=== PATIENT | female | born 1995 | race Caucasian/White ===

== ENCOUNTER 2017-05-07 22:10 | Emergency (ER) | payer BC ==
[~2017-05-07] VITALS: Ht 160 cm; Wt 54.0 kg
[2017-05-07 22:21] VITALS: TEMP 36.7; Ht 160 cm; Wt 54.0 kg
[2017-05-07] MEDS ORDERED: DiphenhydrAMINE HCL 50 MG/ML VIAL IV STA (22:41)
[2017-05-07] MEDS ORDERED: METOCLOPRAMIDE HCL INJ 5 MG/ML 2 ML VIAL IV STA (22:41)
[2017-05-07] MEDS ORDERED: SODIUM CHLORIDE 0.9% 1000ML 1,000 ML IV STA ×2 (22:41)
[2017-05-07] MEDS ORDERED: DICYCLOMINE HCL 10 MG/ML 2 ML AMP IM ONE (22:45)
[2017-05-07] MEDS ORDERED: BCPILLS PO (23:03)
[2017-05-07] MEDS ORDERED: ELUX1TAB2 PO (23:03)
[2017-05-07 23:13] LABS: HEMATOCRIT 35.8 % (37-47); MEAN CELL VOLUME 91.6 fL (80-100); MEAN CORPUSCULAR HEMOGLOBIN 29.9 pg (25-34); MEAN CORPUSCULAR HGB CONC 32.7 g/dl (32-36); PLATELET COUNT 310 K/uL (130-400); RED BLOOD COUNT 3.91 M/uL (4.2-5.4); WHITE BLOOD COUNT 18.34 K/uL (4.8-10.8)
[2017-05-07 23:31] LABS: BUN/CREATININE RATIO 8.5 (10-20); CALCIUM 8.5 mg/dl (8.5-10.1); CREATININE 0.94 mg/dl (0.60-1.20); MAGNESIUM 2.3 mg/dl (1.8-2.4); POTASSIUM 3.4 mmol/L (3.5-5.1)
[2017-05-07 23:34] LABS: C-REACTIVE PROTEIN 4.42 mg/dl (0-0.29)
[2017-05-07 23:36] LABS: PREG INTERNAL NEGATIVE QC NEG CLEAR BACKGROUND; PREG INTERNAL POSITIVE QC POS CONTROL LINE
[2017-05-07 23:43] LABS: BASO % 0.1 %; BASO ABS # 0.02 K/uL (0-0.2); COMPLETE YES; EOS % 0.2 %; IG% 0.4 %; LYMPH % 6.4 %; LYMPH ABS # 1.17 K/uL (1.2-3.4); MONO % 3.1 %; NEUT % 89.8 %
--- NOTE | 2017-05-08 00:28 | EMERGENCY ROOM VISIT NOTE ---
History First contact with patient: 22:29 Chief Complaint: ABDOMINAL PAIN Stated Complaint: ABD PAIN VOMITING History of Present Illness The patient is a 21 year old female who presents to the Emergency Room with complaints of fever, chills, flulike illness with nausea and vomiting and abdominal discomfort. Patient states this morning she woke up with flulike illness. She took some Tylenol with some improvement of symptoms. No documented temperature. Patient states later today she got nauseous and threw up a couple times. She ate dinner and has been having abdominal discomfort since then. She has a history of lymphocytic colitis. She is currently on Viberzi. She is suppose to take this twice a day but has not been for quite some time. She follows at Dr. Coto. Patient states tonight because the pain she didn't take it tonight. No change in symptoms. She did take [place] and shortly after that the belly pain did start. She is unsure this triggered her symptoms. She states this feels like her lymphocytic colitis. Patient denies chest pain, dyspnea, back pain, black or blood in the stool, cough, congestion, leg pain or swelling, urinary symptoms. Review of Systems See HPI for pertinent positives & negatives. A total of 10 systems reviewed and were otherwise negative. Past Medical/Surgical History Lymphocytic colitis Social History Smoking Status: Never Smoker Smokeless Tobacco Use: No Alcohol Use: none Drug Use: none Marital Status: in relationship Occupation Status: employed Current/Historical Medications Scheduled Control Pills ( Control Pills), 1 TAB PO DAILY Eluxadoline (Viberzi), 100 MG PO BID Allergies Coded Allergies: No Known Allergies (Unverified , 05/29/11) Physical Exam Vital Signs Date Time Temp Pulse Resp B/P (MAP) Pulse Ox O2 Delivery O2 Flow Rate FiO2 05/07/17 22:21 36.7 68 20 123/83 97 Room Air Physical Exam VITALS: Vitals are noted on the nurse's note and reviewed by myself. Vital signs stable. GENERAL: Pleasant female, in no acute distress, nondiaphoretic, well-developed well-nourished. SKIN: The skin was without rashes, erythema, edema, or bruising. There is no tenting of the skin. Capillary reflex less than 2 seconds. HEAD: Normocephalic atraumatic. EARS: External auditory canals clear, tympanic membranes pearly suarez without erythema or effusion bilaterally. EYES: Pupils equal round and reactive to light and accommodation. Conjunctivae without injection, sclerae without icterus. Extraocular movements intact. NOSE: Patent, turbinates without inflammation or discharge. No sinus tenderness. MOUTH: Mucous membranes mildly dry. Pharynx without erythema or exudate. Uvula midline. Airway patent. Tongue does not deviate. NECK: Supple without nuchal rigidity. No lymphadenopathy. No thyromegaly. Cervical spine is nontender. No JVD. No meningeal signs HEART: Regular rate and rhythm without murmurs gallops or rubs. LUNGS: Clear to auscultation bilaterally without wheezes, rales or rhonchi. No dullness to percussion. No retractions or accessory muscle use. ABDOMEN: Positive bowel sounds x 4. Normal tympanic percussion. Soft, mild diffuse tenderness with no localized pain, no CVA tenderness, without masses or organomegaly. Rob sign negative. No guarding or rebound tenderness. MUSCULOSKELETAL: No muscle atrophy, erythema, or edema noted. NEURO: Patient was alert and oriented to person place and time. Normal sensation to light and sharp touch. No focal neurological deficits. Medical Decision & Procedures Laboratory Results 05/07/17 23:00 Red Blood Count 3.91, Mean Corpuscular Volume 91.6, Mean Corpuscular Hemoglobin 29.9, Mean Corpuscular Hemoglobin Concent 32.7, Mean Platelet Volume 8.0, Neutrophils (%) (Auto) 89.8, Lymphocytes (%) (Auto) 6.4, Monocytes (%) (Auto) 3.1, Eosinophils (%) (Auto) 0.2, Basophils (%) (Auto) 0.1, Neutrophils # (Auto) 16.49, Lymphocytes # (Auto) 1.17, Monocytes # (Auto) 0.56, Eosinophils # (Auto) 0.03, Basophils # (Auto) 0.02 05/07/17 23:00 Test 05/07/17 23:00 05/07/17 23:09 White Blood Count 18.34 K/uL (4.8-10.8) Red Blood Count 3.91 M/uL (4.2-5.4) Hemoglobin 11.7 g/dL (12.0-16.0) Hematocrit 35.8 % (37-47) Mean Corpuscular Volume 91.6 fL (80-100) Mean Corpuscular Hemoglobin 29.9 pg (25-34) Mean Corpuscular Hemoglobin Concent 32.7 g/dl (32-36) Platelet Count 310 K/uL (130-400) Mean Platelet Volume 8.0 fL (7.4-10.4) Neutrophils (%) (Auto) 89.8 % Lymphocytes (%) (Auto) 6.4 % Monocytes (%) (Auto) 3.1 % Eosinophils (%) (Auto) 0.2 % Basophils (%) (Auto) 0.1 % Neutrophils # (Auto) 16.49 K/uL (1.4-6.5) Lymphocytes # (Auto) 1.17 K/uL (1.2-3.4) Monocytes # (Auto) 0.56 K/uL (0.11-0.59) Eosinophils # (Auto) 0.03 K/uL (0-0.5) Basophils # (Auto) 0.02 K/uL (0-0.2) RDW Standard Deviation 45.9 fL (36.4-46.3) RDW Coefficient of Variation 14.1 % (11.5-14.5) Immature Granulocyte % (Auto) 0.4 % Immature Granulocyte # (Auto) 0.07 K/uL (0.00-0.02) Erythrocyte Sedimentation Rate 16 mm/hr (0-21) Anion Gap 11.0 mmol/L (3-11) Est Creatinine Clear Calc Drug Dose 77.0 ml/min Estimated GFR () 99.1 Estimated GFR (Non- 85.5 BUN/Creatinine Ratio 8.5 (10-20) Calcium Level 8.5 mg/dl (8.5-10.1) Magnesium Level 2.3 mg/dl (1.8-2.4) Total Bilirubin 0.4 mg/dl (0.2-1) Direct Bilirubin 0.1 mg/dl (0-0.2) Aspartate Amino Transf (AST/SGOT) 13 U/L (15-37) Alanine Aminotransferase (ALT/SGPT) 16 U/L (12-78) Alkaline Phosphatase 56 U/L (45-117) C-Reactive Protein 4.42 mg/dl (0-0.29) Total Protein 7.9 gm/dl (6.4-8.2) Albumin 3.9 gm/dl (3.4-5.0) Lipase 107 U/L (73-393) Human Chorionic Gonadotropin, Qual NEG (NEG) Bedside Lactic Acid Venous 0.65 mmol/L (0.90-1.70) Medications Administered Medications (Trade) Dose Ordered Sig/Brice Route Start Time Stop Time Status Last Admin Dose Admin Sodium Chloride 1,000 ml @ 999 mls/hr Q1H1M STAT IV 05/07/17 22:41 05/07/17 23:41 DC 05/07/17 23:19 999 MLS/HR Sodium Chloride 1,000 ml @ 125 mls/hr Q8H STAT IV 05/07/17 22:41 05/08/17 06:40 05/07/17 23:19 125 MLS/HR Metoclopramide HCl (Reglan Inj) 10 mg NOW STAT IV 05/07/17 22:41 05/07/17 22:44 DC 05/07/17 23:19 10 MG Diphenhydramine HCl (Benadryl Inj) 25 mg NOW STAT IV 05/07/17 22:41 05/07/17 22:44 DC 05/07/17 23:19 25 MG Dicyclomine HCl (Bentyl Inj) 20 mg NOW ONCE IM 05/07/17 22:45 05/07/17 22:46 DC 05/07/17 23:19 20 MG ED Course Prior records/ancillary studies reviewed. Triage Nursing notes reviewed. Additional history obtained from the family. The patient's history was concerning for nausea, vomiting, flulike illness, and abdominal pain. Differential diagnosis: Etiologies such as exacerbation of her lymphocytic colitis, gastroenteritis, food borne illness, infections, appendicitis, diverticulitis, inflammatory bowel disease, obstruction, GI bleed, biliary pathology, as well as others were entertained. Physical examination findings: As above. Abdominal examination revealed no localized pain. Vital signs reviewed and revealed stable. ER treatment provided: IV hydration 1 L NSS. Reglan, Benadryl, Bentyl On reassessment the patient felt better. Patient was tolerating p.o. intake. Diagnostics interpretation by me: The labs revealed leukocytosis, mild anemia, negative ECG Negative lactic acid This appears to be consistent with vomiting with abdominal cramping most likely an exacerbation of her lymphocytic colitis. Her leukocytosis could be related to her colitis or to her vomiting. Patient felt much better to be medicated as above. She was tolerating fluids. She did not have acute abdomen on exam. She was requesting to leave. She is advised to follow-up tomorrow with her GI doctor here in the ER sooner for abdominal pain, fevers, vomiting, worsening signs or symptoms or as needed. By the evaluation outlined above emergent etiologies such as appendicitis, diverticulitis, obstruction, cardiac sources, mesenteric ischemia, aortic pathology, inflammatory bowel disease, renal colic, PUD, biliary pathology, UTI, as well as others were deemed relatively unlikely. Case management was consulted to arrange follow-up with GI. The pt informed about the findings as listed above. All questions were answered and pleased with the treatment. Return instructions were outlined and the patient was discharged in stable condition. Outpatient prescription management: Zofran Referral: The patient was referred to their primary care physician and GI for follow-up in 2 to 3 days for a recheck of the current condition. Case reviewed with my attending Medical Decision As above Impression Primary Impression: Nausea and vomiting Additional Impressions: Generalized abdominal cramping Leukocytosis Departure Information Dispostion Home / Self-Care Condition GOOD Referrals Abelino Ortega D.O. (PCP) Patient Instructions [facility] Additional Instructions DO NOT drive, drink alcohol, operate machinery, or perform dangerous activities today. You were given medications in the ER that can affect your ability to safely function or operate a vehicle. Zofran(odansetron) tablets 4mg: Take one and allow it to dissolve in your mouth every four to six hours as needed for nausea or vomiting. Acetaminophen(Tylenol) may be used for fever or pain. Use 1000mg every six hours as needed. Avoid using more than 3000mg in a 24 hour period. Rest and drink plenty of fluids as tolerated. Slow sips of water or sports drinks are recommended instead of large amounts all at once. Continue current medications. Once your stomach is settled start with a clear liquid diet (jello, soup broth, etc.) and then advance as tolerated. You should avoid full, heavy meals for about 24 hrs from the time your symptoms resolved. Return to the ER for persistent vomiting, fevers, abdominal pain, chest pains, difficulty breathing, black or bloody stools, worsening of your condition, or as needed. Follow up with your primary physician and/or rn oncology research in 2-3 days for a recheck of your current condition. Problem Qualifiers Primary Impression: Nausea and vomiting Vomiting type: unspecified Vomiting Intractability: non-intractable Qualified Codes: R11.2 - Nausea with vomiting, unspecified
[2017-05-08 00:49] VITALS: BP 119/79; PULSE 75; O2SAT 98
[2017-05-08] MEDS ORDERED: ONDANSETRON HOME PACK 4MG OD TAB PO ONE (01:00)
== END 2017-05-08 01:08 | disposition home or self-care (01) ==
LOC: C.EDB 22:12 → C.EDA 05-08 01:08
DX: R11.2 Nausea with vomiting, unspecified (principal); R10.84 Generalized abdominal pain; D72.829 Elevated white blood cell count, unspecified; K52.832 Lymphocytic colitis; Z79.899 Other long term (current) drug therapy

== ENCOUNTER 2020-02-19 06:36 | Inpatient (IN) ==
[2020-02-19] MEDS ORDERED: OXYTOCIN 30 UNITS/500 ML BAG IV PRN ×3 (08:54→20:56)
[2020-02-19 09:30] LABS: Hematocrit (blood only) 38.5 % (37-47); Hemoglobin 13.1 g/dL (12.0-16.0); Mean Corpuscular Hemoglobin 33.2 pg (25-34); Mean Corpuscular Volume 97.5 fL (80-100); Mean Platelet Volume 9.1 fL (7.4-10.4); Platelet Count 270 K/uL (130-400); RDW Standard Deviation 49.6 fL (36.4-46.3); Red Blood Count 3.95 M/uL (4.2-5.4); White Blood Count 11.92 K/uL (4.8-10.8)
--- NOTE | 2020-02-19 10:07 | Obstetrical Progress Note ---
Date of Service February 19, 2020 Subjective Admit Note 24 F P0000 at 39.3 weeks admitted to L&D with SROM clear fluid around 0530 this AM with contractions. GBS is negative. FHT CAT 1. Cervix 2/80/-3/vertex. Will allow to ambulate in early labor. Planning for epidural. EFW 8 lbs. Results & Data ([facility]) Vital Signs (Past 12 Hours) Vital Signs Temp Pulse Resp BP 02/19/20 09:53 36.8 C 02/19/20 07:30 36.7 C 02/19/20 06:56 36.7 C 96 H 18 119/76
[2020-02-19] MEDS: LACTATED RINGER'S 1,000 ML IV PRN ×3 (12:18→18:47)
[2020-02-19] MEDS ORDERED: BUPIVACAINE 0.25% 30 ML VIAL ONE (12:23)
[2020-02-19] MEDS ORDERED: ePHEDrine sulfate 50 MG/ML AMP ONE (12:23)
[2020-02-19] MEDS ORDERED: fentaNYL 2MCG/ML ROPIV 1.25MG/ML 100 ML BAG EPI ONE (12:24)
[2020-02-19] MEDS ORDERED: fentaNYL citrate 100 MCG/2 ML VIAL ONE (12:24)
--- NOTE | 2020-02-19 12:37 | Anesthesiology Consultation ---
Date of Service February 19, 2020 Assessment & Plan (1) Encounter for pre-operative examination: Chart Review Chart Review: Acceptable Risk for Labor Epidural History Height/Weight Height: 5 ft 3 in Weight: 69.946 kg Allergies Allergy/AdvReac Type Severity Reaction Status Date / Time No Known Allergies Allergy Unverified 05/29/11 12:14 Medications Home Medications Medication Instructions Recorded Confirmed Last Taken vit-iron fum-folic ac 1 tab PO DAILY 02/19/20 02/19/20 02/18/20 20:00 [ Vitamin] Active Medications Generic Name Dose Route Start Last Admin Trade Name Freq PRN Reason Stop Dose Admin Lactated Ringer's 1,000 mls @ 125 mls/hr 02/19/20 08:54 02/19/20 12:18 Lr IV 02/21/20 08:53 999 mls/hr .Q8H PRN Administration L&D Protocol Protocol Past Medical History Medical History Lymphocytic colitis Past Surgical History Surgical History History of dental surgery Social History Smoking Status: Never smoker Hx Alcohol Use: No Hx Substance Use: No Physical Exam Vital Signs Last Vital Signs Temp 36.8 C 02/19/20 09:53 Pulse 87 02/19/20 12:33 Resp 22 02/19/20 09:53 BP 116/73 02/19/20 12:14 Pulse Ox 100 02/19/20 12:33 Testing Laboratory Results 02/19/20 09:03
[2020-02-19] MEDS ORDERED: ePHEDrine sulfate 50 MG/ML AMP IV PRN (13:06)
[2020-02-19] MEDS ORDERED: ONDANSETRON INJ 2 MG/ML 2 ML VIAL IV PRN (13:06)
[2020-02-19] MEDS ORDERED: NALOXONE HCL 0.4 MG/1 ML VIAL/CARP IV PRN (13:06)
[2020-02-19] MEDS ORDERED: fentaNYL 2MCG/ML ROPIV 1.25MG/ML 100 ML BAG EPI PRN (13:06)
[2020-02-19] MEDS ORDERED: NALOXONE HCL 1 MG in SODIUM CHLORIDE 0.9% 1000ML 1,000 ML IV PRN (13:06)
--- NOTE | 2020-02-19 18:53 | Obstetrical Progress Note ---
Date of Service February 19, 2020 Physical Exam Genitourinary: Manual OB Exam: + cervical dilation 10 cm OB Exam Monitor Tracing: + external FHT monitor used, + external uterine monitor used, + category I and + normal FHT variability contractions not regular no urge to push will start Oxytocin to augment labor Results & Data ([facility]) Vital Signs (Past 12 Hours) Vital Signs Temp Pulse Resp BP Pulse Ox 02/19/20 18:48 95 H 100 02/19/20 18:44 100 H 118/77 02/19/20 18:43 101 H 100 02/19/20 18:38 98 H 100 02/19/20 18:33 102 H 100 02/19/20 18:28 37.0 C 97 H 20 114/76 100 02/19/20 18:23 92 H 96 02/19/20 18:18 86 100 02/19/20 18:13 109 H 112/78 97 02/19/20 18:08 96 H 100 02/19/20 18:03 90 100 02/19/20 18:00 107 H 108/78 02/19/20 17:59 106 H 88 L 02/19/20 17:58 116 H 99 02/19/20 17:53 103 H 100 02/19/20 17:48 100 H 96 02/19/20 17:44 37.3 C 106 H 18 116/77 02/19/20 17:43 105 H 88 L 02/19/20 17:38 94 H 100 02/19/20 17:33 86 99 02/19/20 17:29 81 119/75 02/19/20 17:28 82 100 02/19/20 17:25 91 H 80 L 02/19/20 17:23 79 100 02/19/20 17:18 87 99 02/19/20 17:14 87 116/76 02/19/20 17:13 86 100 02/19/20 17:08 89 100 02/19/20 17:03 87 100 02/19/20 16:59 85 120/78 02/19/20 16:58 91 H 100 02/19/20 16:53 84 99 02/19/20 16:48 82 98 02/19/20 16:43 81 116/73 98 02/19/20 16:38 92 H 98 02/19/20 16:33 86 99 02/19/20 16:28 78 114/71 99 02/19/20 16:23 82 99 02/19/20 16:18 78 100 02/19/20 16:14 89 115/69 83 L 02/19/20 16:13 84 100 02/19/20 16:08 85 97 02/19/20 16:03 82 99 02/19/20 15:59 76 110/69 02/19/20 15:58 74 98 02/19/20 15:53 78 98 02/19/20 15:48 68 98 02/19/20 15:44 70 106/66 02/19/20 15:43 71 97 02/19/20 15:38 79 97 02/19/20 15:33 69 98 02/19/20 15:30 71 109/70 02/19/20 15:28 74 98 02/19/20 15:23 77 99 02/19/20 15:18 78 98 02/19/20 15:15 85 113/71 02/19/20 15:13 81 98 02/19/20 15:08 88 98 02/19/20 15:03 75 98 02/19/20 14:58 85 103/71 98 02/19/20 14:53 79 98 02/19/20 14:48 67 98 02/19/20 14:44 71 110/74 02/19/20 14:43 68 99 02/19/20 14:38 81 98 02/19/20 14:33 85 98 02/19/20 14:28 96 H 105/74 98 02/19/20 14:23 79 100 02/19/20 14:18 79 99 02/19/20 14:13 74 103/64 98 02/19/20 14:08 73 98 02/19/20 14:03 74 94 02/19/20 13:58 75 111/66 100 02/19/20 13:53 70 100 02/19/20 13:48 79 100 02/19/20 13:44 73 108/67 82 L 02/19/20 13:43 71 100 02/19/20 13:38 76 99 02/19/20 13:33 78 100 02/19/20 13:28 84 116/71 98 02/19/20 13:23 75 98 02/19/20 13:18 81 100 02/19/20 13:17 75 107/60 02/19/20 13:15 36.8 C 81 18 110/62 02/19/20 13:13 92 H 111/64 100 02/19/20 13:11 80 106/61 02/19/20 13:09 87 105/61 02/19/20 13:08 86 100 02/19/20 13:07 81 103/59 L 02/19/20 13:05 74 108/61 02/19/20 13:03 71 114/63 100 02/19/20 13:01 85 115/58 L 02/19/20 12:59 75 106/67 02/19/20 12:58 84 97 02/19/20 12:53 86 100 02/19/20 12:48 96 H 100 02/19/20 12:43 88 99 02/19/20 12:38 91 H 100 02/19/20 12:33 87 100 02/19/20 12:28 74 98 02/19/20 12:23 85 100 02/19/20 12:18 80 99 02/19/20 12:14 83 116/73 02/19/20 09:53 36.8 C 22 02/19/20 07:30 36.7 C 20 02/19/20 06:56 36.7 C 96 H 18 119/76
--- NOTE | 2020-02-19 20:43 | Delivery Summary ---
Vaginal Delivery Summary Date of Service February 19, 2020 Delivery Note live female CAROLINE over intact perineum with delayed cord clamping. Apgars 8/9 weight pending. Cord blood collected for stem cells. Unable to obtain cord blood for lab. Placenta delivered spontaneously and intact. Small first degree tear repaired with 3/0 Vicryl suture. EBL 200 ml. Final sponge needle and instrument count are correct. Mom and baby stable.
[2020-02-19] MEDS ORDERED: SUPERCREAM 0.870% 15 GM JAR EXT PRN (20:56)
[2020-02-19] MEDS ORDERED: IBUPROFEN 600 MG TAB PO PRN (20:56)
[2020-02-19] MEDS ORDERED: BENZOCAINE 20% AER SPR 82.5 GM CAN EXT PRN (20:56)
[2020-02-19] MEDS ORDERED: DIPHTHERIA/TETANUS/PERTUSSIS 0.5 ML SYR/VIAL IM ONE (20:56)
[2020-02-19] MEDS ORDERED: HYDROCORTISONE ACETATE 25 MG SUPP PR PRN (20:56)
--- NOTE | 2020-02-19 21:24 | Anesthesia Procedure Note ---
Date of Service February 19, 2020 Anesthesia Post Epidural Note Vital Signs Vital Signs: Temp Pulse Resp BP Pulse Ox 37.0 C 86 18 112/59 L 87 L 02/19/20 18:28 02/19/20 21:15 02/19/20 21:15 02/19/20 21:15 02/19/20 20:36 Notes Mental Status: alert / awake / arousable Nausea / Vomiting: adequately controlled Pain: adequately controlled Airway Patency, RR, SpO2: stable & adequate BP & HR: stable & adequate Hydration State: stable & adequate Neuraxial Anesthesia: was administered and sensory block is resolving Anesthetic Complications: no major complications apparent and Pt Satisfied with anesthetic care Epidural: Removed without complications and With tip intact
[2020-02-19] MEDS: ACETAMINOPHEN 325 MG TAB PO PRN (23:33)
[2020-02-20] MEDS ORDERED: OXYTOCIN 30 UNITS in LACTATED RINGER'S 1,000 ML IV SCH (00:30)
[2020-02-20] MEDS ORDERED: METHYLERGONOVINE MALEATE 0.2 MG/ML AMP IM PRN (02:06)
[2020-02-20] MEDS: METHYLERGONOVINE MALEATE 0.2 MG/ML AMP ONE ×2 (02:09→02:26)
[2020-02-20] MEDS ORDERED: OXYTOCIN 20 UNITS in LACTATED RINGER'S 1,000 ML IV SCH (02:15)
[2020-02-20 06:40] LABS: Hematocrit (blood only) 27.9 % (37-47); Hemoglobin 9.4 g/dL (12.0-16.0); Mean Corpuscular Hemoglobin 32.9 pg (25-34); Mean Corpuscular Hgb Conc 33.7 g/dL (32-36); Mean Corpuscular Volume 97.6 fL (80-100); Mean Platelet Volume 8.7 fL (7.4-10.4); Platelet Count 198 K/uL (130-400); RDW Coefficient of Variation 13.9 % (11.5-14.5); RDW Standard Deviation 49.3 fL (36.4-46.3); Red Blood Count 2.86 M/uL (4.2-5.4); White Blood Count 19.93 K/uL (4.8-10.8)
[2020-02-20] MEDS: PRENATAL VITAMIN 1 TAB PO SCH (08:00)
[2020-02-20] MEDS: DOCUSATE SODIUM 100 MG CAP PO SCH ×2 (08:00→20:08)
[2020-02-20] MEDS ORDERED: NON-FORMULARY MEDICATION (Prenatal Vit-Iron Fum-Folic Ac [Prenatal Vitamin] 1 TAB) PO SCH (09:00)
[2020-02-20] MEDS ORDERED: DiphenhydrAMINE 2%/ZINC 0.1% CREAM 28GM TUBE EXT PRN (10:48)
--- NOTE | 2020-02-20 10:54 | Obstetrical Progress Note ---
Date of Service February 20, 2020 Assessment & Plan (1) Normal course: PPD #1 Pt doing well PPH stable H?H terry draining adequately uterus firm Erythema in the vulva region- looks like contact dermatitis Ice pack removed will apply Benadryl cream to area Subjective Ambulation: ambulating normally Voiding: no voiding problems Passing Gas:: Yes Diet Tolerance:: regular diet Lochia:: Small Feeding Type:: breast feeding Review of Systems All systems reviewed & are unremarkable except as noted in HPI & below Physical Exam Constitutional WD/WN, vitals as above well developed and well nourished Eyes PERRL, conjunctivae normal, anicteric sclerae Neck trachea midline, no thyromegaly Respiratory normal respiratory effort, lungs clear to auscultation Auscultation: no crackles, no rales and no wheezes Cardiovascular RRR, no murmur, no edema Gastrointestinal (Abdomen) normal bowel sounds, soft, nontender, no hepatosplenomegaly Uterus is below umbilicus Musculoskeletal no cyanosis or clubbing, extremities motor strength 5/5 Skin no rashes, warm and dry Neurologic patellar DTR's 2+ bilat, sensation intact Psychiatric A+Ox3, euthymic affect Genitourinary normal external appearance Results & Data Vital Signs (Past 12 Hours) Vital Signs Temp Pulse Pulse Resp BP Pulse Ox 02/20/20 07:20 36.8 C 67 16 118/81 100 02/20/20 03:30 37.0 C 71 18 123/85 99 02/20/20 00:15 84 109/73 02/19/20 23:05 36.8 C 84 18 101/69 98
[2020-02-20] MEDS: ACETAMINOPHEN 325 MG TAB PO PRN ×2 (11:09→20:21)
[2020-02-20] MEDS ORDERED: Nursing to Pharmacy Communication ONE (14:22)
[2020-02-20] MEDS ORDERED: SIMETHICONE 80 MG CHEW PO PRN ×2 (14:29→14:45)
[2020-02-20] MEDS ORDERED: bisacodyL 5 MG TABEC PO SCH (20:00)
[2020-02-21 06:43] LABS: Hematocrit (blood only) 25.1 % (37-47); Hemoglobin 8.3 g/dL (12.0-16.0)
[2020-02-21] MEDS ORDERED: bisacodyL 10 MG SUPP PR PRN (07:00)
--- NOTE | 2020-02-21 07:24 | Obstetrical Progress Note ---
Date of Service February 21, 2020 Assessment & Plan Admission and Anticipated Discharge Date Admission Date: February 19, 2020 Physical Exam Physical Exam: abdomen soft and non tender no calf tenderness ambulating well vaginal bleeding scant hgb 8.3 Results & Data ([facility]) Vital Signs (Past 12 Hours) Vital Signs Temp Pulse Resp BP Pulse Ox 02/20/20 23:25 36.7 C 85 16 101/61 02/20/20 20:15 37.1 C 98 H 18 119/79 100
[2020-02-21] MEDS: DOCUSATE SODIUM 100 MG CAP PO SCH (08:42)
[2020-02-21] MEDS: PRENATAL VITAMIN 1 TAB PO SCH (08:42)
== END 2020-02-21 12:52 | disposition home or self-care (01) | DRG 807 ==
LOC: OPB 06:36 → 4S1 06:39 → 4S2 23:06

== ENCOUNTER 2021-12-23 06:00 | Inpatient (IN) ==
[2021-12-23] MEDS ORDERED: OXYTOCIN 30 UNITS/500 ML BAG IV PRN ×2 (06:16→06:43)
[2021-12-23] MEDS ORDERED: LACTATED RINGER'S 1,000 ML IV PRN (06:16)
[2021-12-23] MEDS ORDERED: LIDOCAINE 1% LOCAL 20 ML VIAL ONE (06:35)
[2021-12-23] MEDS ORDERED: ACETAMINOPHEN 325 MG TAB ONE (06:36)
[2021-12-23] MEDS ORDERED: DIPHTHERIA/TETANUS/PERTUSSIS 0.5 ML SYR/VIAL IM ONE (06:43)
[2021-12-23] MEDS ORDERED: BENZOCAINE 20% AER SPR 82.5 GM CAN EXT PRN (06:43)
[2021-12-23] MEDS ORDERED: SUPERCREAM 0.870% 15 GM JAR EXT PRN (06:43)
[2021-12-23] MEDS ORDERED: IBUPROFEN 600 MG TAB PO PRN (06:43)
[2021-12-23] MEDS ORDERED: HYDROCORTISONE ACETATE 25 MG SUPP PR PRN (06:43)
--- NOTE | 2021-12-23 06:49 | History & Physical Report ---
Date of Service December 23, 2021 Assessment & Plan (1) Thyroiditis: (2) Term delivered: Plan: Delivery Admission and Anticipated Discharge Date Admission Date: December 23, 2021 History of Present Illness Chief Complaint: onset of labor Primary Care Provider: JELANI Jolley 26 F P1001 at 39.3 weeks admitted fully dilated and ready for delivery. GBS was negative. Allergies Allergy/AdvReac Type Severity Reaction Status Date / Time No Known Drug Allergies Allergy Verified 02/04/21 12:15 Home Medications Medication Instructions Recorded Confirmed Type levothyroxine 112 mcg tablet 112 mcg PO DAILY #90 tab 11/09/21 Rx Patient History Medical History Hypothyroidism Lymphocytic colitis Surgical History History of dental surgery Family History Family/Other Crohn's disease Denies family history of Ovarian cancer Prostate cancer Myocardial infarction Breast cancer Colorectal cancer Social History Smoking Status: Never smoker Hx Alcohol Use: No Hx Substance Use: No Preferred Language: Amharic Visual Impairment: No Limitations Hearing Ability: Normal Digital Account Executive Required: No Beliefs That Will Affect Care: None marital status: Current Living Situation: Spouse current occupational status: employed Other Information That Helps Us Care for You: No Feels Safe at Home: Yes Safety Concerns: Feels Safe At This Time caffeine: Yes during the past year weight has: remained stable Dental Care, Regularly: Yes Physical Activity Frequency: Daily Seatbelt Use: always Sunscreen Use: Yes Assistive Devices: None Review of Systems All systems reviewed & are unremarkable except as noted in HPI & below Physical Exam Constitutional: WD/WN, vitals as above Eyes: PERRL, conjunctivae normal, anicteric sclerae Respiratory: normal respiratory effort, lungs clear to auscultation Skin: no rashes, warm and dry Neurologic: patellar DTR's 2+ bilat, sensation intact Psychiatric: A+Ox3, euthymic affect Results & Data ([facility]) Vital Signs (Past 12 Hours) Vital Signs Pulse BP 12/23/21 06:29 86 125/82 Monitoring External Monitor Cat 1
--- NOTE | 2021-12-23 06:54 | Delivery Summary ---
Vaginal Delivery Summary Date of Service December 23, 2021 Vaginal Delivery Summary Delivery Note live male delivered by Dr. Tate after patient presents to L&D fully dilated and ruptured membranes with clear fluid. Live male delivered from vertex without any complications with Apgars 8/9 weight pending. Cord blood and placenta delivered intact. Second degree tear repaired by Dr. Tate. EBL 200 ml. Final sponge, needle and instrument count are correct. Mom and baby stable.
[2021-12-23 07:03] LABS: Hematocrit (blood only) 37.4 % (37-47); Hemoglobin 12.5 g/dL (12.0-16.0); Mean Corpuscular Hemoglobin 32.7 pg (25-34); Mean Corpuscular Hgb Conc 33.4 g/dL (32-36); Mean Corpuscular Volume 97.9 fL (80-100); Mean Platelet Volume 8.7 fL (7.4-10.4); Platelet Count 241 K/uL (130-400); RDW Coefficient of Variation 14.4 % (11.5-14.5); RDW Standard Deviation 51.3 fL (36.4-46.3); Red Blood Count 3.82 M/uL (4.2-5.4); White Blood Count 13.83 K/uL (4.8-10.8)
[2021-12-23] MEDS ORDERED: PRENATAL VITAMIN 1 TAB PO SCH (08:00)
[2021-12-23] MEDS: LEVOTHYROXINE SODIUM 88 MCG TABLET PO SCH (08:03)
[2021-12-23] MEDS: ACETAMINOPHEN 325 MG TAB PO PRN ×2 (11:55→18:40)
[2021-12-23] MEDS: DOCUSATE SODIUM 100 MG CAP PO SCH (20:07)
--- NOTE | 2021-12-23 20:07 | Obstetrical Progress Note ---
Date of Service December 23, 2021 Assessment & Plan Admission and Anticipated Discharge Date Admission Date: December 23, 2021 Results & Data ([facility]) Vital Signs (Past 12 Hours) Vital Signs Temp Pulse Pulse Resp BP BP Pulse Ox 12/23/21 16:30 37 C 73 16 114/74 98 12/23/21 11:10 36.8 C 78 16 108/69 98 12/23/21 10:28 75 20 120/75 12/23/21 10:17 72 105/62 12/23/21 10:07 74 104/61 12/23/21 10:00 18 12/23/21 09:58 76 104/57 L 12/23/21 09:47 76 20 102/59 L 12/23/21 09:38 76 107/67 12/23/21 09:28 87 114/63 12/23/21 09:18 71 123/68 12/23/21 09:07 94 H 113/74 12/23/21 08:57 83 113/64 12/23/21 08:46 90 107/61 12/23/21 08:39 81 20 108/60
[2021-12-24] MEDS: ACETAMINOPHEN 325 MG TAB PO PRN ×2 (00:16→08:55)
[2021-12-24] MEDS ORDERED: HYDROCORTISONE 1% OINT 30 GM TUBE EXT STA (04:39)
[2021-12-24 06:21] LABS: Hematocrit (blood only) 32.9 % (37-47); Hemoglobin 10.7 g/dL (12.0-16.0); Mean Corpuscular Hemoglobin 32.1 pg (25-34); Mean Corpuscular Hgb Conc 32.5 g/dL (32-36); Mean Corpuscular Volume 98.8 fL (80-100); Mean Platelet Volume 8.7 fL (7.4-10.4); Platelet Count 245 K/uL (130-400); RDW Coefficient of Variation 14.6 % (11.5-14.5); RDW Standard Deviation 52.2 fL (36.4-46.3); Red Blood Count 3.33 M/uL (4.2-5.4); White Blood Count 11.64 K/uL (4.8-10.8)
[2021-12-24] MEDS: LEVOTHYROXINE SODIUM 88 MCG TABLET PO SCH (06:44)
[2021-12-24] MEDS: DOCUSATE SODIUM 100 MG CAP PO SCH (09:09)
--- NOTE | 2021-12-24 10:26 | Obstetrical Progress Note ---
Date of Service December 24, 2021 Subjective Ambulation: ambulating normally Voiding: no voiding problems Passing Gas:: Yes Diet Tolerance:: regular diet Lochia:: Small Feeding Type:: breast feeding Current Pain Level(1-10): 0 doing well plans for d/c Physical Exam Constitutional WD/WN, vitals as above comfortable abdomen soft and non-tender fundus firm no edema neg Savi's for d/c Results & Data ([facility]) Vital Signs (Past 12 Hours) Vital Signs Temp Pulse Resp BP 12/24/21 07:27 36.9 C 82 16 123/86 12/24/21 03:50 36.6 C 86 18 116/81 12/24/21 00:20 36.9 C 76 18 114/73 Laboratory Results 12/23/21 12/23/21 12/24/21 06:20 06:44 05:55 WBC 13.83 H 11.64 H RBC 3.82 L 3.33 L Hgb 12.5 10.7 L Hct 37.4 32.9 L MCV 97.9 98.8 MCH 32.7 32.1 MCHC 33.4 32.5 RDW Std Deviation 51.3 H 52.2 H RDW Coeff of Darby 14.4 14.6 H Plt Count 241 245 MPV 8.7 8.7 SARS-CoV-2, RNA, NAAT NEGATIVE
[2021-12-24] MEDS ORDERED: bisacodyL 5 MG TABEC PO SCH (20:00)
[2021-12-25] MEDS ORDERED: bisacodyL 10 MG SUPP PR PRN
--- NOTE | 2021-12-26 09:16 | Delivery Summary ---
DATE OF SERVICE: 12/23/2021 PROCEDURE: Normal spontaneous vaginal delivery. SURGEON: Rodrick Tate MD. PREOPERATIVE DIAGNOSES: Term , in active labor. ESTIMATED BLOOD LOSS: 200 mL DRAINS: None. FLUIDS: None per rapid delivery. COMPLICATIONS: None. INDICATIONS: The patient is a 26-year-old who was with the Curalate, came in active labor wit hout a [facility] physician available for delivery. I was asked to step in for delivery as delivery h appening precipitously. DESCRIPTION OF PROCEDURE: The patient was 10 cm dilated, 100% effaced, positive 2 station in an acti ve labor with a strong urge to push and pushed over approximately 2 contractions to achieve delivery of the delivered in JOSE ROBERTO position, restituted by transverse. No nuchal cord was noted. Body and shoulders quickly followed. was noted to be vigorous soon after delivery and a 1 minute delayed cord clamping was initiated, which the cord was double clamped and cut. Cord segment, cord b lood was obtained. Attention was then turned to delivery of placenta, which was delivered intact, 3- vessel cord, gentle cord traction. On inspection of the perineum, vagina, cervix, there was noted to be a second-degree perineal laceration, which was repaired with a 3-0 Vicryl in a traditional crown stitch. Needle, sponge, and instrument counts were correct at the completion of the case. Job ID: [id number]
== END 2021-12-24 14:05 | disposition home or self-care (01) | DRG 807 ==
LOC: OPB 06:00 → 4S1 06:02 → 4S2 10:40
DX: Z3A.39 39 weeks gestation of pregnancy; E06.9 Thyroiditis, unspecified; O70.1 Second degree perineal laceration during delivery; O99.284 Endocrine, nutritional and metabolic diseases complicating childbirth; O62.3 Precipitate labor; Z37.0 Single live birth